=== PATIENT | female | born 1980 | race Two or more races ===

== ENCOUNTER 2018-10-08 12:05 | Emergency (ER) | payer OTHER ==
[~2018-10-08] VITALS: Ht 162.6 cm; Wt 59.4 kg
[~2018-10-08 12:05] MED LIST: IMURAN50 MG PO; PREDNISONE10 MG PO; PREDNISONE20 MG PO; Prednisone PO; Protonix PO
== END 2018-10-08 17:33 | disposition home or self-care (01) ==
LOC: ER 12:05
DX: S83.8X2A Sprain of other specified parts of left knee, initial encounter (principal); W01.0XXA Fall on same level from slipping, tripping and stumbling without subsequent striking against object, initial encounter; Y93.89 Activity, other specified; Y92.89 Other specified places as the place of occurrence of the external cause; Y99.8 Other external cause status